=== PATIENT | male | born 1995 | race Two or more races ===

== ENCOUNTER 2025-01-07 19:25 | Emergency (ER) | payer OTHER ==
[~2025-01-07] VITALS: Ht 182.9 cm; Wt 90.9 kg
[2025-01-07] MEDS: SULFAMETHOX/TRIMETH DS 800-160 MG/TABLET PO ONE (20:27)
[2025-01-07] MEDS: LIDOCAINE 1% 10 ML VIAL ID ONE (20:27)
[2025-01-07] MEDS: CEPHALEXIN MONOHYDRATE 500 MG CAPSULE PO ONE (20:27)
[2025-01-07 20:40] VITALS: BP 117/68; PULSE 77; RESP 14; TEMP 97.9; O2SAT 98
== END 2025-01-07 20:55 | disposition home or self-care (01) ==
LOC: EMS 19:25
DX: L03.012 Cellulitis of left finger (principal); F17.210 Nicotine dependence, cigarettes, uncomplicated; X58.XXXA Exposure to other specified factors, initial encounter; Y93.89 Activity, other specified; Y92.89 Other specified places as the place of occurrence of the external cause; Y99.8 Other external cause status
CPT/HCPCS: 99284; J3490